=== PATIENT | male | born 1990 | race Two or more races ===

== ENCOUNTER 2016-11-08 23:36 | Emergency (ER) | payer SELFPAY ==
[2016-11-09 01:39] VITALS: BP 148/79
[2016-11-09] MEDS ORDERED: Cephalexin CAP* 500 MG PO ONE ×2 (04:28→04:29)
[2016-11-09] MEDS ORDERED: Tetan/Diph/Pertus SYR(Tdap)* 0.5 ML SYR(BOOSTRIX) use SYR IM ONE (04:30)
--- NOTE | 2016-11-09 07:48 | ED ---
Nabil Soni Rebecca, scribed for Maged Howard MD on 11/09/16 at 0351 . Laceration/Wound HPI - HPI Summary HPI Summary: Pt is a 26 y/o M who presents to ED c/o laceration to the L 2nd digit. Pt pinched his finger between two objects, leading to the laceration and pain. Associated pain is currently severe, ranked 10/10 and began immediately after trauma and has been constant since onset. Sx aggravated and alleviated by nothing. - History of Current Complaint Stated Complaint: LEFT INDEX FINGER LAC Time Seen by Provider: 11/09/16 03:34 Hx Obtained From: Patient Mechanism of Injury: Sharp/Blunt Trauma - Pinched Onset/Duration: Sudden Onset, Still Present Aggravating: Nothing Alleviating: Nothing Timing: Constant Current Severity: Severe Pain Intensity: 10 Pain Scale Used: 0-10 Numeric Associated Signs & Symptoms: Negative - Allergy/Home Medications Allergies/Adverse Reactions: Allergies Allergy/AdvReac Type Severity Reaction Status Date / Time No Known Allergies Allergy Verified 11/08/16 23:58 PMH/Surg Hx/FS Hx/Imm Hx Previously Healthy: Yes Endocrine/Hematology History: Denies: Hx Diabetes Cardiovascular History: Denies: Hx Coronary Artery Disease, Hx Hypertension Infectious Disease History: Denies: Traveled Outside the [place] in Last 30 Days - Family History Known Family History: Negative: Hypertension, Diabetes - Social History Alcohol Use: None Substance Use Type: Reports: None Smoking Status (MU): Never Smoked Tobacco Review of Systems Negative: Fever Positive: Other - L 2nd digit laceration with associated pain All Other Systems Reviewed And Are Negative: Yes Physical Exam - Summary Physical Exam Summary: General: well-appearing, no pain distress Skin: warm, color reflects adequate perfusion, dry, on the palmar surface of the left hand, there is a 1.5 cm long laceration between the BIP and PIP joints Head: normal Eyes: EOMI, DINH ENT: normal Neck: supple, nontender Respiratory: CTA, breath sounds present Cardiovascular: RRR Abdomen: soft, nontender Bowel: present Musculoskeletal: normal, strength/ROM intact Neurological: normal, sensory/motor intact, A&O x3 Psychological: affect/mood appropriate Triage Information Reviewed: Yes Vital Signs On Initial Exam: Initial Vitals Temp Pulse Resp BP Pulse Ox 98.3 F 69 16 116/90 99 11/08/16 23:50 11/08/16 23:50 11/08/16 23:50 11/08/16 23:50 11/08/16 23:50 Vital Signs Reviewed: Yes Procedures - Laceration/Wound Repair 1 Location: Other - 2nd digit on the L hand Description: Linear Length, Depth and Shape: 1.5 cm Irrigated w/ Saline (ccs): 10 Laceration/Wound Explored: clean Closure: Single Layer Suture Type: Prolene - 5.0 Number of Sutures: 3 Diagnostics - Vital Signs Vital Signs Temp Pulse Resp BP Pulse Ox 11/09/16 01:35 97.9 F 69 16 148/79 100 11/08/16 23:50 98.3 F 69 16 116/90 99 - Laboratory Lab Statement: Any lab studies that have been ordered have been reviewed, and results considered in the medical decision making process. - Radiology Finger XR Xray Interpretation: No Acute Changes Radiology Interpretation Completed By: ED Physician Laceration Repair Course/Dx - Course Course Of Treatment: NO CRITICAL CARE TIME. DISCHARGE HOME STABLE. - Clinical Impression Provider Diagnoses: Laceration of left index finger Discharge - Discharge Plan Condition: Stable Disposition: HOME Prescriptions: Cephalexin CAP* [Keflex CAP*] 500 mg PO QID #38 cap Patient Education Materials: Care For Your Stitches (ED), Laceration (ED) Referrals: [facility] [Outside] Non Staff,Doctor [Primary Care Provider] - Additional Instructions: FOLLOW UP WITH YOUR DOCTOR. SUTURES OUT IN 8-10 DAYS. YOU RECEIVED YOUR TETANUS SHOT IN THE EMERGENCY DEPARTMENT. RETURN TO THE EMERGENCY DEPARTMENT FOR ANY WORSENING OF YOUR CONDITION; PAIN, SIGNS OF INFECTION OR QUESTIONS OR CONCERNS. The documentation as recorded by the Nabil urbina Rebecca accurately reflects the service I personally performed and the decisions made by me, Maged Howard MD.
--- NOTE | 2016-11-09 07:57 | RAD ---
HISTORY: Left second finger trauma COMPARISONS: None VIEWS: 3, Frontal, lateral, and oblique views of the second digit of the left hand FINDINGS: BONE DENSITY: Normal. BONES: There is no displaced fracture. JOINTS: There is no arthropathy. ALIGNMENT: There is no dislocation. SOFT TISSUES: Unremarkable. OTHER FINDINGS: None. IMPRESSION: NO ACUTE OSSEOUS INJURY. IF SYMPTOMS PERSIST, RECOMMEND REPEAT IMAGING.
== END 2016-11-09 04:57 | disposition home or self-care (01) ==
LOC: ED 23:36
DX: S61.211A Laceration without foreign body of left index finger without damage to nail, initial encounter (principal); W23.0XXA Caught, crushed, jammed, or pinched between moving objects, initial encounter; Y93.9 Activity, unspecified; Y92.9 Unspecified place or not applicable; Z23 Encounter for immunization
CPT/HCPCS: 12001; 73140; 90471; 90715; 99282; A9270-GY